=== PATIENT | female | born 1960 | race Caucasian/White ===

== ENCOUNTER 2017-08-28 06:04 | Emergency (ER) | payer OTHER ==
[~2017-08-28] VITALS: Ht 160 cm; Wt 52.2 kg
[~2017-08-28 06:04] MED LIST: AZIT250 PO; CEPH500 PO; CIPDEXSU OT; Cipro500 MG PO; HYDACE5 PO; HYDCHL25 PO; LISI20 PO; Pyridium200 MG PO; RXHYDACE PO; VALA500 PO
[2017-08-28 07:18] LABS: Influenza A Negative (NEGATIVE); Influenza B Positive (NEGATIVE)
[2017-08-28] MEDS ORDERED: Acetaminophen-1 EAC1 PO (08:02)
== END 2017-08-28 08:20 | disposition home or self-care (01) ==
LOC: ER 06:04
PROVIDERS: Emergency Medicine
DX: S39.011A Strain of muscle, fascia and tendon of abdomen, initial encounter (principal); J10.1 Influenza due to other identified influenza virus with other respiratory manifestations; Z88.0 Allergy status to penicillin; Z79.899 Other long term (current) drug therapy; F17.200 Nicotine dependence, unspecified, uncomplicated; X58.XXXA Exposure to other specified factors, initial encounter
CPT/HCPCS: 71046; 87804; 94640; 99283